=== PATIENT | female | born 1985 | race Caucasian/White ===

== ENCOUNTER 2017-07-17 16:41 | Emergency (ER) | payer MEDICAID ==
[~2017-07-17] VITALS: Ht 154.9 cm; Wt 52.2 kg
[~2017-07-17 16:41] MED LIST: AMOXICILLIN/CLA1 TA1 PO; BENADRYL25 M1 PO; CELEXA40 MG PO; CIPRO 500MG TA500 MG PO; ELAVIL25 MG PO; IBUPROFEN400 MG PO; LORTAB 5/500 501 TAB PO; MACROBID 100MG100 MG PO; MEDROL 4MG. DOSE4 MG PO; MOTRIN400 MG PO; NOMEDS; NOMEDS XX; PERCOCET 5/3251 EACH PO; PREDNISONE50 MG PO; PROTONIX 40MG T40 MG PO; ROBAXIN-750750 MG PO; TYLENOL W/CODEI1 TAB PO; VOLTAREN75 MG PO; ZANTAC 300300 MG PO; ZITHROMAX Z PA250 MG PO; Zofran4 MG PO
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
[2017-07-17] MEDS ORDERED: CIPRO 500MG TA500 MG PO (17:16)
[2017-07-17] MEDS ORDERED: PANTOPRAZOLE SO40 MG PO (17:16)
[2017-07-17 17:19] VITALS: BP 107/85
== END 2017-07-17 17:20 | disposition home or self-care (01) ==
LOC: UTC 16:41
DX: Z76.0 Encounter for issue of repeat prescription (principal); K52.9 Noninfective gastroenteritis and colitis, unspecified

== ENCOUNTER 2017-07-22 16:56 | Emergency (ER) | payer MEDICAID ==
[~2017-07-22] VITALS: Ht 154.9 cm; Wt 52.2 kg
[~2017-07-22 16:56] MED LIST changes: +PANTOPRAZOLE SO40 MG PO
--- NOTE | 2017-07-22 17:30 | Emergency Room Report ---
History of Present Illness Time Seen by [id number] Presenting Problem in Triage Pt arrived:Walked Presenting Problem:PT ADVISES SHE WAS SEEN 2 WEEKS AGO FOR RIGHT LOWER QUAD PAIN AND WAS DIAGNOSED WITH GASTRITIS, LOST HER MEDS AND CAMER BACK TO [facility] FOR REFILL WAS GIVEN DIFFERENT MEDS AND ADVISES SHE IS STILL HAVING PAIN. 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 N Clinical Suspician of Infection? N Mental Status: 1 - Regular (Normal Baseline) Sepsis Risk:Low Sepsis RiskN Have you (or family members/close friends) recently traveled outside the [place]? N If Yes, where/when: Have you had exposure to infectious disease within the past month? N TB? Other? Specify: Comment The patient complains of RIGHT lower abdominal pain. It has been present for 2 weeks. She was seen in this emergency department 07/07/17 for the symptoms. She had a workup including a CT scan of the abdomen and pelvis. She says that she was told that she had colitis and gastritis. Says she was started on a proton pump inhibitor and Cipro. She lost her prescriptions and return to the urgent treatment center for refills. She is still on those medications, but states she is not improved. No other new symptoms. No vomiting, no diarrhea, no hematochezia, no fever, no urinary symptoms or vaginal symptoms. She states her current pain is the same that she has had with previous ovarian cysts. She has been unable to follow up with her primary care provider, she is trying to get an appointment with Rhiannon Holguin, but she is a new patient and is still waiting. 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 Gurrola. ALLERGIES Coded Allergies: vancomycin (Intermediate, I-HIVES 06/13/16) Home Medications Active Scripts Pantoprazole Sodium (Protonix 40MG TAB) 40 MG PO DAILY #30 TAB Prov: 07/07/17 Ciprofloxacin HCl (Cipro 500MG TAB) 500 MG PO BID #14 TAB Prov: 07/07/17 Ciprofloxacin HCl (Cipro 500MG TAB) 500 MG PO BID #10 TAB Prov: 07/17/17 Pantoprazole Sodium (Pantoprazole 40MG) 40 MG PO DAILY #30 ECT Prov: 07/17/17 Reported Medications No Home Medications (NO HOME MEDICATIONS) 1 EACH XX ONCE History Medical History General CAD? No Angina: No MS: No Hypertension? No Hyperlipidemia? No CHF? No DVT? No PE? No COPD? No Asthma? No Anemia? No GERD? No Gastric ulcers? No GI Bleed? No Hernia? No Thyroid Problems? No Hypothyroidism? No CVA? No Seizures? No Diabetes? No Renal Insuffiency? No End Stage Renal Disease? No UTI? No Stones? No BPH? No GB Disease: Yes Nephritic Syndrome? No Asplenia? No Hepatitis? No Sickle Cell Disease? No Arthritis? No Migraines? No Cataracts? No Glaucoma? No MRSA? Yes HIV? No TB? No Anxiety? Yes Depression? Yes Cancer? No More? No Immunization Hx DT/Tetanus Unknown Flu NEVER Pneumonia NEVER Surgical Hx Previous Surgery?Y GALLBLADDER I&D TUBAL X 2. 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 Physical Exam Vital Signs Vital Signs Date Time Temp Pulse Resp B/P Pulse O2 O2 Flow FiO2 Ox Delivery Rate 07/22 1746 98.5 89 16 127/87 98 07/22 1700 98.5 108 16 149/91 98 General Appearance normal appearance, WD/WN Eye Exam - bilateral eye normal exam, bilateral eye PERRL, bilateral eye EOMI Ear, Nose, Throat hearing grossly normal, normal ENT inspection Neck normal inspection, non-tender, supple, full range of motion Respiratory Status Yes: trachea midline, chest symmetrical, non tender chest. No: respiratory distress. Lung Sounds bilateral: normal breath sounds, lungs clear. Cardiovascular normal exam, regular rate/rhythm, no peripheral edema, no gallop, no JVD, no murmur, no rub, normal peripheral pulses Peripheral Pulses Pulses normal Yes Gastrointestinal normal bowel sounds, soft, no organomegaly, no guarding, no rebound, tenderness (RIGHT lower quadrant) Back normal inspection, no CVA tenderness Extremities non-tender, normal range of motion, normal inspection Neurologic alert, normal exam, oriented x 3 Mental status normal mood/affect Skin intact, normal color, warm/dry Medical Decision Making LABS/Meds/Orders Pt receiving controlled substance in ED? Yes Tim was queried for this patient? Yes Comment [id number] 1 rx buprenorphine on 07/11/17. Progress - I reviewed findings from previous emergency department visit. CT scan showed no evidence of acute appendicitis. Slight increased fluid throughout small bowel. Relatively empty sigmoid and LEFT colon, slight wall thickening here most likely reflects such and the lack of distention. 10 to doubt colitis. RIGHT ovary generous size 4 cm in containing multiple cysts. LEFT ovary up to 3.5 cm. If right-sided pelvic pain persists, consider pelvic ultrasound for further evaluation. Borderline splenomegaly. The patient declines further workup. I discussed CT results with her, multiple cysts in the RIGHT ovary that may be the source of her pain. I think this is more likely than colitis and gastritis. She has not improved with medication. I did offer repeat workup including repeat CT scan to again rule out appendicitis, but she refuses this at this time. She says her pain is identical to previous ovarian cysts, which are usually on that side, and she is certain that that is the cause. She wants to follow-up with Dr. Gurrola. Departure Departure Disposition DC Home or Self Care(routine) Clinical Impression Primary Impression: Right lower quadrant abdominal pain Secondary Impressions: Ovarian cyst Qualifiers: Laterality: right Qualified Code: N83.201 - Unspecified ovarian cyst, right side Condition STABLE Referrals NO REFERRAL (Family) Patient Instructions DI for Abdominal Pain-Adult, DI for Ovarian Cyst Additional Instructions Call Dr. Gurrola for follow-up this week. Additional instructions for ABDOMINAL PAIN: Return immediately if worsening abdominal pain, vomiting, shortness of breath, fever, vomiting of blood or abdominal distention. Prescriptions Current Visit Scripts TRAMADOL HCL (Tramadol) 50 MG PO Q6HP PRN pain #10 TAB Naproxen (Naprosyn 500MG Tab) 500 MG PO BID #14 TAB ED Critical Care Critical Care No at 1948
--- NOTE | 2017-07-22 17:30 | Emergency Room Report ---
History of Present Illness Time Seen by [id number] Presenting Problem in Triage Pt arrived:Walked Presenting Problem:PT ADVISES SHE WAS SEEN 2 WEEKS AGO FOR RIGHT LOWER QUAD PAIN AND WAS DIAGNOSED WITH GASTRITIS, LOST HER MEDS AND CAMER BACK TO [facility] FOR REFILL WAS GIVEN DIFFERENT MEDS AND ADVISES SHE IS STILL HAVING PAIN. 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 N Clinical Suspician of Infection? N Mental Status: 1 - Regular (Normal Baseline) Sepsis Risk:Low Sepsis RiskN Have you (or family members/close friends) recently traveled outside the [place]? N If Yes, where/when: Have you had exposure to infectious disease within the past month? N TB? Other? Specify: Comment The patient complains of RIGHT lower abdominal pain. It has been present for 2 weeks. She was seen in this emergency department 07/07/17 for the symptoms. She had a workup including a CT scan of the abdomen and pelvis. She says that she was told that she had colitis and gastritis. Says she was started on a proton pump inhibitor and Cipro. She lost her prescriptions and return to the urgent treatment center for refills. She is still on those medications, but states she is not improved. No other new symptoms. No vomiting, no diarrhea, no hematochezia, no fever, no urinary symptoms or vaginal symptoms. She states her current pain is the same that she has had with previous ovarian cysts. She has been unable to follow up with her primary care provider, she is trying to get an appointment with Rhiannon Holguin, but she is a new patient and is still waiting. 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 ALLERGIES Coded Allergies: vancomycin (Intermediate, I-HIVES 06/13/16) Home Medications Active Scripts Pantoprazole Sodium (Protonix 40MG TAB) 40 MG PO DAILY #30 TAB Prov: 07/07/17 Ciprofloxacin HCl (Cipro 500MG TAB) 500 MG PO BID #14 TAB Prov: 07/07/17 Ciprofloxacin HCl (Cipro 500MG TAB) 500 MG PO BID #10 TAB Prov: 07/17/17 Pantoprazole Sodium (Pantoprazole 40MG) 40 MG PO DAILY #30 ECT Prov: 07/17/17 Reported Medications No Home Medications (NO HOME MEDICATIONS) 1 EACH XX ONCE History Medical History General CAD? No Angina: No MD: No Hypertension? No Hyperlipidemia? No CHF? No DVT? No PE? No COPD? No Asthma? No Anemia? No GERD? No Gastric ulcers? No GI Bleed? No Hernia? No Thyroid Problems? No Hypothyroidism? No CVA? No Seizures? No Diabetes? No Renal Insuffiency? No End Stage Renal Disease? No UTI? No Stones? No BPH? No GB Disease: Yes Nephritic Syndrome? No Asplenia? No Hepatitis? No Sickle Cell Disease? No Arthritis? No Migraines? No Cataracts? No Glaucoma? No MRSA? Yes HIV? No TB? No Anxiety? Yes Depression? Yes Cancer? No More? No Immunization Hx DT/Tetanus Unknown Flu NEVER Pneumonia NEVER Surgical Hx Previous Surgery?Y GALLBLADDER I&D TUBAL X 2. 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 Physical Exam Vital Signs Vital Signs Date Time Temp Pulse Resp B/P Pulse O2 O2 Flow FiO2 Ox Delivery Rate 07/22 1746 98.5 89 16 127/87 98 07/22 1700 98.5 108 16 149/91 98 General Appearance normal appearance, WD/WN Eye Exam - bilateral eye normal exam, bilateral eye PERRL, bilateral eye EOMI Ear, Nose, Throat hearing grossly normal, normal ENT inspection Neck normal inspection, non-tender, supple, full range of motion Respiratory Status Yes: trachea midline, chest symmetrical, non tender chest. No: respiratory distress. Lung Sounds bilateral: normal breath sounds, lungs clear. Cardiovascular normal exam, regular rate/rhythm, no peripheral edema, no gallop, no JVD, no murmur, no rub, normal peripheral pulses Peripheral Pulses Pulses normal Yes Gastrointestinal normal bowel sounds, soft, no organomegaly, no guarding, no rebound, tenderness (RIGHT lower quadrant) Back normal inspection, no CVA tenderness Extremities non-tender, normal range of motion, normal inspection Neurologic alert, normal exam, oriented x 3 Mental status normal mood/affect Skin intact, normal color, warm/dry Medical Decision Making LABS/Meds/Orders Pt receiving controlled substance in ED? Yes Tim was queried for this patient? Yes Comment [id number] 1 rx buprenorphine on 07/11/17. Progress - I reviewed findings from previous emergency department visit. CT scan showed no evidence of acute appendicitis. Slight increased fluid throughout small bowel. Relatively empty sigmoid and LEFT colon, slight wall thickening here most likely reflects such and the lack of distention. 10 to doubt colitis. RIGHT ovary generous size 4 cm in containing multiple cysts. LEFT ovary up to 3.5 cm. If right-sided pelvic pain persists, consider pelvic ultrasound for further evaluation. Borderline splenomegaly. The patient declines further workup. I discussed CT results with her, multiple cysts in the RIGHT ovary that may be the source of her pain. I think this is more likely than colitis and gastritis. She has not improved with medication. I did offer repeat workup including repeat CT scan to again rule out appendicitis, but she refuses this at this time. She says her pain is identical to previous ovarian cysts, which are usually on that side, and she is certain that that is the cause. She wants to follow-up with Dr. Gurrola. Departure Departure Disposition DC Home or Self Care(routine) Clinical Impression Primary Impression: Right lower quadrant abdominal pain Secondary Impressions: Ovarian cyst Qualifiers: Laterality: right Qualified Code: N83.201 - Unspecified ovarian cyst, right side Condition STABLE Referrals NO REFERRAL (Family) Patient Instructions DI for Abdominal Pain-Adult, DI for Ovarian Cyst Additional Instructions Call Dr. Gurrola for follow-up this week. Additional instructions for ABDOMINAL PAIN: Return immediately if worsening abdominal pain, vomiting, shortness of breath, fever, vomiting of blood or abdominal distention. Prescriptions Current Visit Scripts TRAMADOL HCL (Tramadol) 50 MG PO Q6HP PRN pain #10 TAB Naproxen (Naprosyn 500MG Tab) 500 MG PO BID #14 TAB ED Critical Care Critical Care No at 1948
[2017-07-22] MEDS ORDERED: TRAMADOL50 M1 PO (17:36)
[2017-07-22] MEDS ORDERED: NAPROSYN500 M1 PO (17:36)
[2017-07-22 17:46] VITALS: BP 127/87
== END 2017-07-22 17:46 | disposition home or self-care (01) ==
LOC: ER 16:56
DX: N83.201 Unspecified ovarian cyst, right side (principal); Z72.0 Tobacco use